=== PATIENT | female | born 1955 | race Caucasian/White ===

== ENCOUNTER → 2020-11-25 12:50 | Outpatient (CLI) | payer MEDICARE, SELFPAY ==
--- NOTE | ~2020-11-25 | US_ITS ---
EXAMINATION: US soft tissue chest DATE: 11/25/2020 13:12 INDICATION: Localized mass/swelling at the supraclavicular base of the left neck TECHNIQUE: Multiple grayscale and Doppler ultrasound images of the region of concern at the supraclav icular anterior base of the left neck were obtained. COMPARISON: None FINDINGS/IMPRESSION: No pathologically enlarged lymphadenopathy or abnormal mass or fluid collections identified at the re gion of concern. Reviewed, dictated and finalized at location A.
== END ==
PROVIDERS: PCP Family Medicine; Visit Provider Family Medicine
DX: R22.2 Localized swelling, mass and lump, trunk (principal)
CPT/HCPCS: 76604

== ENCOUNTER 2021-07-06 10:58 | Emergency (ER) | payer MEDICARE, SELFPAY ==
--- NOTE | ~2021-07-06 | XR_ITS ---
EXAMINATION: [id number] EXAM DATE: 07/06/2021 11:26 INDICATION: Fall, mid right rib pain. TECHNIQUE: Frontal projection of the upper right ribs, frontal projection of the lower right ribs, ob lique projection of the right ribs, frontal chest x-ray(s) for interpretation. There is no prior britt dy for comparison. FINDINGS: There are no displaced acute right rib fractures identified. There is no soft tissue abno rmality seen. No confluent consolidation, pneumothorax or pleural effusion suspected. IMPRESSION: No displaced right rib fractures. Reviewed, dictated and finalized at location A.
--- NOTE | ~2021-07-06 | XR_ITS ---
EXAMINATION: XR hip LT min 2V EXAM DATE: 07/06/2021 11:26 INDICATION: FALL 2 days ago; pain post Lt hip. Initial encounter. TECHNIQUE: Left hip frontal, 'frog leg' projections for interpretation. There is no prior study for c omparison. FINDINGS: Smooth left hip femoral head contour, no radiographic evidence of avascular necrosis. Ther e is mild left hip primary osteoarthritis. There are no acute fractures or dislocations identified. There is no subcutaneous gas. The soft tissue is unremarkable. There are no radiopaque foreign bod ies. IMPRESSION: Mild left hip osteoarthritis. Reviewed, dictated and finalized at location A.
--- NOTE | 2021-07-06 11:02 | ED.FALL ---
HPI - Fall General Chief Complaint: Extremity Injury, Lower Stated Complaint: fall Time Seen by Provider: 07/06/21 11:02 Source: patient, RN notes reviewed and old records reviewed Mode of arrival: ambulatory Limitations: no limitations History of Present Illness HPI Narrative: 65-year-old female presents to [facility] post fall with complaints of right rib pain and left hip pain. Patient said she missed a step on Saturday, 2 days ago, and went to catch herself. Has had rib pain since. Denies hitting head, loss of consciousness, chest pain or abdominal pain. No numbness or tingling in extremities. complaint: fall (trip and ) Related Data Home Medications Medication Instructions Recorded Confirmed meloxicam 15 mg PO DAILY PRN 07/06/21 07/06/21 simvastatin 20 mg PO DAILY 07/06/21 07/06/21 Allergies Allergy/AdvReac Type Severity Reaction Status Date / Time Penicillins Allergy Unknown Unknown Verified 07/06/21 11:07 prednisone AdvReac Other Verified 07/06/21 11:07 Review of Systems Review of Systems: All systems reviewed & are unremarkable except as noted in HPI and below Constitutional: Constitutional: Reports no additional constitutional complaints, Denies chills and Denies fever(s) Eyes: Eyes: Reports no additional eye complaints, Denies change in vision and Denies photophobia ENT: Reports system reviewed and no additional complaints, except as documented and Denies sore throat Cardiovascular: Cardiovascular: Reports no additional cardiovascular complaints and Denies chest pain Respiratory: Respiratory: Reports no additional respiratory complaints, Denies chest congestion, Denies cough, Denies dyspnea and Denies wheezing Gastrointestinal: Gastrointestinal: Reports no additional gastrointestinal complaints, Denies abdominal pain, Denies nausea and Denies vomiting Musculoskeletal: Musculoskeletal: Reports as per HPI Comments: Right rib, left hip Integumentary/Breasts: Skin/Breast: Reports system reviewed and no additional complaints, except as docu Neurologic: Reports system reviewed and no additional complaints, except as documented Psychiatric: Psychiatric: Reports no additional psychiatric complaints Allergic/Immunologic: Allergic/Immunologic: Reports no additional allergic/immunologic complaints PMFSH Past Medical History Medical History (Updated 07/06/21 @ 11:47 by Yana De León) Patient denies significant medical history Surgical History Surgical History (Updated 07/06/21 @ 11:13 by Yana De León) H/O breast implant No significant past surgical history Social History Social History (Updated 07/06/21 @ 11:11 by Yana De León) Smoking status: Never smoker Alcohol intake: never Living arrangements: with family Gender identity (if verbalized by the patient): Female Comments At the time of my signature, I reviewed and agree with the nursing past medical, surgical, social, and family history. There is no relevant family history pertinent to the patient complaint. Exam Const: General: healthy appearing, no acute distress, well developed and alert Nutritional Appearance: average body habitus and well nourished Orientation/consciousness: patient oriented x3 Limitations: no limitations HENMT: Head: normal to inspection Ears: external ears normal Eyes: Pupils: Equal, round and reactive pupils present Neck: Neck: normal visual inspection, no lymphadenopathy and no meningeal signs Chest: Chest palpation & inspection: normal inspection of the chest Resp: Effort & Inspection: normal respiratory effort Auscultation: clear to auscultation bilaterally Cardio: Rate: regular rate Rhythm: regular rhythm GI: GI Palp: Yes Soft to palpation and No Tenderness to palpation present (GI) Back/Spine/Pelvis: Back: no CVA tenderness Cervical Spine: normal cervical lordosis, cervical ROM normal and No cervical muscular tenderness Thoracic/Lumbar Spine: thoraco-lumbar ROM normal, No p
[2021-07-06 11:03] VITALS: BP 141/70; PULSE 72; RESP 16; TEMP 36.3; O2SAT 100
== END 2021-07-06 11:53 | disposition home or self-care (01) ==
PROVIDERS: Emergency Provider Nurse Practitioner; PCP Family Medicine
DX: M25.552 Pain in left hip (principal); S20.211A Contusion of right front wall of thorax, initial encounter; X58.XXXA Exposure to other specified factors, initial encounter
CPT/HCPCS: 71101; 73502; 99214; G0463